=== PATIENT | female | born 1990 | race Two or more races ===

== ENCOUNTER 2016-11-23 22:37 | Emergency (ER) | payer MEDICAID ==
[~2016-11-23] VITALS: Ht 167.6 cm; Wt 78.2 kg
[2016-11-23] MEDS ORDERED: MORPHINE SULFATE 4 MG/ML, 1ML IVPush PRN (23:30)
[2016-11-23] MEDS ORDERED: SODIUM CHLORIDE FLUSH 10ML SYR IVF ONE (23:30)
[2016-11-23] MEDS ORDERED: ONDANSETRON 2MG/ML, 2ML IVPush ONE (23:30)
[2016-11-23] MEDS ORDERED: SODIUM CHLORIDE 0.9% 1,000ML IVBOLUS ONE (23:30)
[2016-11-23] MEDS ORDERED: ACETAMINOPHEN 325 MG TABLET PO ONE (23:30)
[2016-11-23 23:43] LABS: ASPARTATE AMINO TRANSFERASE 13 U/L (15-37); BLOOD UREA NITROGEN 13 mg/dL (7-18)
[2016-11-23 23:44] LABS: RAPID INFLUENZA A Negative (Negative); RAPID INFLUENZA B Negative (Negative)
[2016-11-23] MEDS ORDERED: ONDANSETRON 2MG/ML, 2ML ONE (23:47)
[2016-11-23] MEDS ORDERED: MORPHINE SULFATE 4 MG/ML, 1ML ONE (23:47)
[2016-11-23] MEDS ORDERED: ACETAMINOPHEN 325 MG TABLET ONE (23:47)
[2016-11-24] LABS: PATH.CAST-FLAG NOT PRESENT; SPERM-FLAG NOT PRESENT; SRC-FLAG NOT PRESENT; XTAL-FLAG NOT PRESENT; YLC-FLAG NOT PRESENT
[2016-11-24] MEDS ORDERED: KETOROLAC 60 MG/2 ML IVPush ONE (01:30)
[2016-11-24] MEDS ORDERED: KETOROLAC 30 MG/1 ML ONE (01:43)
[2016-11-24 02:00] VITALS: BP 138/66
== END 2016-11-24 02:03 | disposition home or self-care (01) ==
LOC: ED 23:59
DX: M54.6 Pain in thoracic spine (principal); M54.9 Dorsalgia, unspecified
CPT/HCPCS: 36415; 71010; 72100; 80053; 81001; 84703; 85025; 87086; 87400; 96361; 96374; 96375; 99285; J1885; J2405; J7030